=== PATIENT | female | born 2000 ===

== ENCOUNTER 2022-01-08 14:32 | Emergency (ER) | payer OTHER ==
[~2022-01-08] VITALS: Ht 167.6 cm; Wt 59.0 kg
== END 2022-01-08 21:19 | disposition home or self-care (01) ==
LOC: ER 14:32
DX: A49.3 Mycoplasma infection, unspecified site (principal); Z33.1 Pregnant state, incidental; R51.9 Headache, unspecified; R50.9 Fever, unspecified; R42 Dizziness and giddiness